=== PATIENT | male | born 1975 | race Caucasian/White ===

== ENCOUNTER → 2022-06-17 | Outpatient (CLI) | payer BC | END | disposition home or self-care (01) | LOC: RESCLI 09:26 | PROVIDERS: ATTEND Student in an Organized Health Care Education/Training Program | DX: I82.409 Acute embolism and thrombosis of unspecified deep veins of unspecified lower extremity (principal); M10.9 Gout, unspecified; Z79.899 Other long term (current) drug therapy; Z79.01 Long term (current) use of anticoagulants ==